=== PATIENT | female | born 1970 | race Caucasian/White ===

== ENCOUNTER 2016-07-11 10:55 | Emergency (ER) | payer OTHER ==
--- OUTSIDE RECORDS SUMMARY | 2016-07-11 12:31 | XMS REPORT | Continuity of Care Document ---
:1970 Author Organization [facility] ([facility]) Address [address] [place] [address] Phone [phone] Care Team Providers Name Role Phone Unavailable Primary Care Provider Unavailable Source Comments This disclosure is being made pursuant to the Care Everywhere program, applicable federal and state laws, and may not contain all informaitonavailable regarding this patient.[facility] ([facility]) Active Allergies and Adverse Reactions Not on File Current Medications Not on file Active Problems Not on file Social History Tobacco Use Types Packs/Day Years Used Date Never Assessed Plan of Care Health Maintenance Due Date Last Done Comments Hepatitis B Vaccine (1 of 3 - Primary Series) 1970 Tdap Vaccine 02/19/1983 Lipid Disorder Screening 02/19/1990 MMR Vaccine 02/19/1990 Td Vaccine 02/19/1990 Cervical Cancer Screening 02/19/2002 04/25/1997 Mammogram 2012 Influenza Vaccine: Seasonal (#1) 11/13/2015 Results from Last 3 Months Not on file
[2016-07-11] MEDS ORDERED: KETOROLAC TROMETHAMINE 30 MG/ML VIAL IV ONE (12:33)
[2016-07-11] MEDS ORDERED: ONDANSETRON HCL/PF 2 MG/ML VIAL IV ONE (12:33)
[2016-07-11] MEDS ORDERED: NORMAL SALINE 1,000 ML IV ONE (12:33)
[2016-07-11] MEDS ORDERED: ONDANSETRON HCL/PF 2 MG/ML VIAL ONE (12:54)
[2016-07-11] MEDS ORDERED: KETOROLAC TROMETHAMINE 30 MG/ML VIAL ONE (12:54)
[2016-07-11 12:55] LABS: Hematocrit 43.8 % (37.0-47.0); Hemoglobin 14.5 gm/dL (12.5-16.0); Mean Cell Volume 88.1 fl (78-100); Mean Corpuscular Hemoglobin 29.2 pg (27-31); Mean Corpuscular Hgb Conc 33.1 g/dl (32-36); Mean Platelet Volume 8.6 fl (6.0-9.5); Neutrophil # 9.1 K/mm3 (1.3-6.0); Neutrophil % 87.5 % (42-75.0); Platelet Count 235 K/mm3 (150-450); Red Blood Count 4.97 M/mm3 (4.2-5.4); Red Cell Distribution Width 13.9 % (11.5-14.0); Urine Bilirubin Negative (NEGATIVE); Urine Blood 25 /ul (NEGATIVE); Urine Ketone Negative (NEGATIVE); Urine Nitrite Negative (NEGATIVE); Urine Protein Negative (NEGATIVE); Urine Urobilinogen Normal (NORMAL); White Blood Count 10.4 K/mm3 (4.0-10.5)
--- NOTE | 2016-07-11 12:55 | ERNOTE ---
Medical Problem HPI - Narrative Date of Service: 07/11/16 - General Chief Complaint: Nausea/Vomiting Time Seen by Provider: 07/11/16 12:00 Source: patient Exam Limitations: no limitations - Immun/Allergies/Home Medications Immunizations: IMMUNIZATION HX Immunizations Up to Date Yes History of Influenza Vaccine No Hx Pneumococcal Vaccination No Allergies/Adverse Reactions: Allergies No Known Allergies Allergy (Verified 07/11/16 11:12) Home Medications: HOME MEDICATIONS Ondansetron [Zofran Odt] 4 mg PO Q6H PRN #20 tab 07/11/16 [Last Taken Unknown] - History of Present History Narrative: Pt. comes in with c/o nausea, diarrhea, and vomiting for two days. Pt. denies any SOB, CP, fever, or constipation. Pt. states that the symptoms started yesterday and continued throughout the night to this morning. the pt. states that last diarrhea was early this morning and last vomit was 2 hours ago. Pt. does state taht her abdomen is diffusely painful when she vomits but it is lessened when she is resting. Pt. denies any prehospital treatment. Review of Systems - Review of Systems Constitutional: Present: no symptoms reported. Absent: recent illness, fever, chills, weakness, malaise, weight loss EYE: Present: no symptoms reported ENT: Present: no symptoms reported Respiratory: Present: no symptoms reported. Absent: shortness of breath, cough , wheezing Cardiology: Present: no symptoms reported. Absent: chest pain, palpitations, edema Gastrointestinal/Abdominal: Present: nausea, vomiting, diarrhea, abdominal pain , eating less, drinking less Genitourinary: Present: no symptoms reported Musculoskeletal: Present: no symptoms reported. Absent: back pain, joint pain Skin: Present: no symptoms reported. Absent: rash, change in color Neurological: Present: no symptoms reported. Absent: headache, dizziness/light- headedness, numbness, tingling All Other Systems: All systems neg except as marked - Patient's Past Medical History Patient History - Medical: No pertinent hx Patient History - Cardiac/Respiratory: No pertinent hx Patient History - Cancer: No Hx of Cancer Patient History - Surgical Procedures: Cholecystectomy, , Tubal Ligation Patient History - Other: None - Social History Living Situations: home Abuse History: No History of abuse Psych History: No pertinent hx Alcohol Use: none Drug Use: none - Immunizations Immunizations Up to Date: Yes Hx Pneumococcal Vaccination: No History of Influenza Vaccine: No Physical Exam - Physical Exam General Appearance: Present: wd/wn, alert, no apparent distress Eye Exam: Normal inspection: bilateral, PERRL: bilateral, EOMI: bilateral Ears, Nose, Throat: Present: normal ENT inspection, normal pharynx Neck: Present: normal inspection, nontender. Absent: lymphadenopathy (R), lymphadenopathy (L) Respiratory: Present: no respiratory distress, normal breath sounds, no accessory muscle use, chest nontender, lungs clear. Absent: crackles, rales, rhonchi, wheezing Cardiovascular/Chest: Present: regular rate, rhythm, no murmur, normal peripheral pulses Gastrointestinal/Abdominal: Present: normal bowel sounds, nondistended, soft, no organomegaly, tenderness - diffuse with deep palpation mild ED Progress - Date and Time Seen: Date and Time: 07/11/16 14:37 Pt. able to tolerate fluids at this time. - Results and Orders Patient's Lab Results:: I have reviewed the patient's lab results. Results and Orders: hematuria - Vital Signs Patient's Vital Signs:: I have reviewed the patient's vital signs. Vital Signs: Vital Signs 07/11/16 11:07 Temperature 37.5 C Pulse Rate 92 Respiratory 14 Rate Blood Pressure 129/50 O2 Sat by Pulse 96 Oximetry - CT/Ultrasound CT/Ultrasound Narrative: CT abd without any renal stones. - Progress/Reassessment Chief Complaint: Nausea/Vomiting Progress:: Improved Departure - Departure Clinical Impression: Gastroenteritis and colitis, viral Disposition: Home self-care Condition: Good Instructions: Viral Gastroenteritis, Adult, Daii-[id number]-Lrag, Form - Excuse from Work, School, or Physical Activity Additional Instructions: please follow up with primary provider in 2-3 days if no improvement. No working until free of diarrhea for 24 hours. Referrals: Mel Herring FNP [Primary Care Provider] - Prescriptions: Ondansetron [Zofran Odt] 4 mg PO Q6H PRN #20 tab PRN Reason: Nausea
[2016-07-11 13:07] LABS: Urine Appearance Slightly Cloudy; Urine Bacteria 2+; Urine Color Yellow; Urine RBC 0-5 /hpf (0-5); Urine WBC TRACE /hpf (0-5)
[2016-07-11 13:14] LABS: Albumin * 3.4 gm/dl (3.4-5.0); Anion Gap 14.6 mmol/L (6.8-13.8); Bilirubin, Total 0.8 mg/dL (0.0-1.1); Calcium * 8.8 mg/dL (7.9-10.9); Carbon Dioxide 26.2 mmol/L (24-32.6); Potassium 3.8 mmol/L (3.4-4.6); Total Protein 7.7 gm/dL (6.2-8.2)
[2016-07-11 16:25] VITALS: BP 142/55
== END 2016-07-11 15:35 | disposition home or self-care (01) ==
LOC: ER 10:55
DX: A08.4 Viral intestinal infection, unspecified (principal); K52.9 Noninfective gastroenteritis and colitis, unspecified

== ENCOUNTER 2016-12-26 08:43 | Day surgery (SDC) | payer OTHER ==
[~2016-12-26 08:43] MED LIST: RINGER'S SOLUTION,LACTATED 1,000 ML IV PRN; ceFAZolin SODIUM 3 GM in DEXTROSE 5 % IN WATER 100 ML IV PRN
[2016-12-26 09:10] LABS: Hematocrit 41.3 % (37.0-47.0); Hemoglobin 13.7 gm/dL (12.5-16.0); Mean Cell Volume 86.6 fl (78-100); Mean Corpuscular Hemoglobin 28.7 pg (27-31); Mean Corpuscular Hgb Conc 33.2 g/dl (32-36); Mean Platelet Volume 9.1 fl (6.0-9.5); Neutrophil # 3.9 K/mm3 (1.3-6.0); Neutrophil % 58.6 % (42-75.0); Platelet Count 272 K/mm3 (150-450); Red Blood Count 4.77 M/mm3 (4.2-5.4); Red Cell Distribution Width 13.2 % (11.5-14.0); White Blood Count 6.6 K/mm3 (4.0-10.5)
[2016-12-26 09:25] LABS: Albumin * 3.5 gm/dl (3.4-5.0); Anion Gap 11.9 mmol/L (6.8-13.8); BUN/Creatinine Ratio 14.9 (9.0-21.6); Bilirubin, Total 0.5 mg/dL (0.0-1.1); Ca. Corrected For Albumin 8.9 mg/dL (8.4-10.2); Calcium * 8.8 mg/dL (7.9-10.9); Potassium 3.9 mmol/L (3.4-4.6); Total Protein 7.6 gm/dL (6.2-8.2)
[2016-12-26] MEDS ORDERED: BUPIVACAINE HCL 50 ML VIAL IJ ONE ×2 (10:05)
[2016-12-26] MEDS ORDERED: RINGER'S SOLUTION,LACTATED 1,000 ML IV ONE ×2 (11:50→13:50)
[2016-12-26] MEDS ORDERED: oxyCODONE HCL/ACETAMINOPHEN 1 TAB TABLET PO ONE ×2 (14:11→16:00)
[2016-12-26] MEDS ORDERED: RINGER'S SOLUTION,LACTATED 1,000 ML IV PRN (14:11)
[2016-12-26] MEDS ORDERED: IBUPROFEN 800 MG TABLET PO ONE ×2 (14:11→16:00)
--- NOTE | 2016-12-26 14:21 | OR ---
Operative Report - Dictated Report Narrative: DATE OF PROCEDURE: 12/26/2016 PROCEDURE: 1. Total laparoscopic hysterectomy, bilateral salpingectomy 2. Lysis of adhesion (60 min) 3. Diagnostic cystoscopy. ANESTHESIA: General, endotracheal intubation. PREOPERATIVE DIAGNOSES: 1. Menorrhagia, failed hormonal therapy. 2. Severe dysmenorrhea 3. Chronic hydrosalpinx of the left fallopian tube 4. Smoker 5. Prior C-sections x 3 (both lower vertical and transverse incisions) with bilateral tubal ligation 6. Open cholecystectomy (upper vertical incision) 7. Morbid obesity BMI 47 (weight 123 kg) POSTOPERATIVE DIAGNOSES: 1. Menorrhagia, failed hormonal therapy. 2. Severe dysmenorrhea 3. Chronic hydrosalpinx of the left fallopian tube 4. Smoker 5. Prior C-sections x 3 (both lower vertical and transverse incisions) with bilateral tubal ligation 6. Open cholecystectomy (upper vertical incision) 7. Morbid obesity BMI 47 (weight 123 kg) SURGEON: Genaro Velazquez M.D. DIRECTOR OF CLOUD SERVICES: Lang Kay FINDINGS: 1. Uterus and both ovaries were normal. 2. There were evidence of bilateral tubal ligation, left hydrosalpinx and adhesions of left adnexa to the pelvic side wall/sigmoid colon. 3. There was upper abdominal adhesions with omentum blocking the view to the liver and the stomach. 4. On cystoscopy, the bladder appeared intact and bilateral ureteral jets were seen. SPECIMENS: Uterus, cervix, and both tubes (removed in one piece) DRAINS: None. URINE OUTPUT: 200 ml BLOOD LOSS: 50 ml INTRAOPARATIVE IV FLUIDS: 2000 ml COMPLICATIONS: None. DESCRIPTION OF PROCEDURE: The patient consented to the operation and was taken to the operating room. She was placed on the operating table supine. SCDs were placed on her lower extremities. General anesthesia was induced. Three grams of ancef was given by IV prior to anesthesia induction. She was repositioned in the dorsal lithotomy position. Her right arm was tucked at her side under the drape. Exam under anesthesia revealed a uterus with minimal descent and with no adnexal mass. The abdomen was prepped with Chloraprep and the vagina was prepped with Betadine. She was draped in the usual sterile fashion. A time -out procedure was conducted to confirm the correct patient for the correct procedure. After time-out, a Carr catheter was placed into the bladder. A bivalve speculum was placed into the vagina. The vagina and the cervix were prepped with Betadine one more time. The anterior cervix was grasped with a single-tooth tenaculum. The uterus was sounded to 8 cm. A large VCare uterine manipulator was inserted into the uterine cavity. The balloon was inflated with 6 cc of air. The single-tooth tenaculum was removed. [place] speculum was removed. The upper VCare cup was advanced into the vagina to hug the cervix. The lower VCare cup was advanced into the vagina to align with the upper VCare cup and to provide pneumoperitoneum for the procedure. The lower VCare cup was fastened to the uterine manipulator. The surgeon then changed gloves and attention was paid to the abdomen. A small vertical incision was made at the upper edge of the umbilicus. A Veress needle was inserted into the abdominal cavity. Intraabdominal placement was confirmed with a saline drop test and with low entry pressure of 6 mmHg. The abdomen was insufflated with CO2 gas to an intraabdominal pressure of 15 mmHg. The Veress needle was removed. A 5 mm trocar with the laparoscope was inserted through the umbilicus incision into the abdomen. The regular 5 mm trocar was not long enough, so a long 5 mm trocar was used. Intraabdominal placement was confirmed with the laparoscope. Survey of the entry site revealed no trauma to the underlying structures. The patient was then placed in Trendelenburg position. Three 5 mm trocars were placed in the lower abdomen. Both left and the right lower quadrant trocars (5 mm) were placed superior and medial to the anterior superior iliac spine to avoid vessels and nerves. A suprapubic trocar ( 5 mm) was placed in the midline. All trocars were placed under the direct visualization of the laparoscope. Survey of the abdomen and pelvis revealed the findings noted above. Attention was now turned to the left side. The left fallopian tube was elevated. Lysis of adhesions were carried out to release the left fallopian tube from the sigmoid colon and the pelvic side wall. The mesosalpinx was divided with the Thunderbeat. The division was carried to the cornual region. The uteroovarian ligament was divided with the Thunderbeat and the division was carried on the broad ligament through the round ligament towards the lower uterine segment. The course of the left ureter was not identified, but believed to be away from the surgical field. The broad ligament incision was into the anterior leaf and the posterior leaf. Anterior leaf of the broad ligament was dissected towards the bladder uterine reflection. The posterior leaf of the broad ligament was dissected towards the uterosacral ligament. Dense adhesions were encountered near the uterine vessel and in the lower uterine segment. These were dissected carefully. The left uterine vessel was isolated and divided with the Thunderbeat. The lower uterine segment was dissected to free the bladder down. The cardinal ligament complex was divided with the Thunderbeat to the level of vaginal cervical junction. Attention was now turned to the right side. The right fallopian tube was elevated. The mesosalpinx was divided with the Thunderbeat. The division was carried to the cornual region. The uteroovarian ligament was divided with the Thunderbeat and the division was carried on the broad ligament through the round ligament towards the lower uterine segment. The course of the right ureter was identified and protected. The broad ligament incision was into the anterior leaf and the posterior leaf. The anterior leaf of the broad ligament was dissected towards the bladder uterine reflection and to meet with the opposite dissection point at the midline. Again, dense adhesion was lysed carefully here. The posterior leaf of the broad ligament was dissected towards the uterosacral ligament. The right uterine vessel was isolated, and divided with the Thunderbeat. The cardinal ligament complex was divided with the Thunderbeat to the level of vaginal cervical junction. The vaginal fornix was seen well through the VCare cup. The Thunderbeat was used to make an anterior colpotomy over the VCare cup groove. Entry into the vagina was without complications. A circumferential incision was made along the vaginal cervical junction using the VCare cup groove as a guide. Bilateral uterosacral ligament was divided. The cervix was completely divided from the vagina. The surgeon moved to the vaginal area to retrieve the specimen. The VCare uterine manipulator was removed. The cervix was grasped with a single tooth tenaculum. The uterus, cervix and both tubes were removed through the vagina in one piece. The vagina was packed with 2 moist laps to keep the pneumoperitoneum. The surgeon then changed gloves and attention was paid back to the abdomen. The pelvis was thoroughly irrigated with saline. The vaginal opening was closed transversely with 0 Vicryl Endoknot suture in an interrupted fashion using intracorporeal suturing technique and extracorporeal knot tying. The uterosacral ligament was sutured to the vaginal cuff corner for cuff support. The pelvis was irrigated with saline. Extra fluid was suctioned out from the abdomen and pelvis. There was hemostasis in all vessel pedicles. The patient was taken out of Trendelenburg. Three lower abdominal trocars were removed. The abdomen was deflated. The trocar at the umbilicus was removed with the laparoscope. The skin incision was closed with 4-0 Monocryl suture and 2 to 3 cc of 0.25% Marcaine was infiltrated around each incision for post op pain management. The incisions were covered with Steri-Strips. A diagnostic cystoscopy was performed. Vaginal packing was removed and the Carr catheter was removed. A 70-degree cystoscope was introduced through the urethra into the bladder. Exam of the bladder revealed the bladder was intact. There were urine jets coming out from the left as well as the right ureteral orifice, confirming the integrity of ureters. The cystoscope was removed. The Carr catheter was not replaced. The patient tolerated the procedure well. All counts were correct and the patient was taken to the recovery room in stable condition. Genaro Velazquez MD
[2016-12-26 17:16] VITALS: BP 164/95
== END 2016-12-26 08:44 | disposition home or self-care (01) ==
LOC: AMB 08:43
PROVIDERS: ATTEND Obstetrics & Gynecology
PROC: 0UTC4ZZ Resection of Cervix, Percutaneous Endoscopic Approach (ICD-10-PCS; 2016-12-26)
PROC: 0UT74ZZ Resection of Bilateral Fallopian Tubes, Percutaneous Endoscopic Approach (ICD-10-PCS; 2016-12-26)
PROC: 0UT94ZZ Resection of Uterus, Percutaneous Endoscopic Approach (ICD-10-PCS; principal; 2016-12-26 10:45)
DX: N72 Inflammatory disease of cervix uteri (principal); N92.0 Excessive and frequent menstruation with regular cycle; N94.6 Dysmenorrhea, unspecified; N70.11 Chronic salpingitis; I10 Essential (primary) hypertension; F41.9 Anxiety disorder, unspecified; F32.9 Major depressive disorder, single episode, unspecified; F17.200 Nicotine dependence, unspecified, uncomplicated; E66.01 Morbid (severe) obesity due to excess calories; Z68.42 Body mass index [BMI] 45.0-49.9, adult

== ENCOUNTER 2016-12-28 20:22 | Emergency (ER) | payer OTHER ==
[2016-12-28 21:20] LABS: Hematocrit 37.5 % (37.0-47.0); Hemoglobin 12.6 gm/dL (12.5-16.0); Mean Cell Volume 85.8 fl (78-100); Mean Corpuscular Hemoglobin 28.8 pg (27-31); Mean Corpuscular Hgb Conc 33.6 g/dl (32-36); Mean Platelet Volume 9.3 fl (6.0-9.5); Neutrophil # 5.8 K/mm3 (1.3-6.0); Neutrophil % 67.4 % (42-75.0); Platelet Count 259 K/mm3 (150-450); Red Blood Count 4.37 M/mm3 (4.2-5.4); Red Cell Distribution Width 13.1 % (11.5-14.0); White Blood Count 8.6 K/mm3 (4.0-10.5)
--- NOTE | 2016-12-28 21:31 | ERNOTE ---
Medical Problem HPI - Narrative Date of Service: 12/28/16 - General Chief Complaint: Nausea/Vomiting Time Seen by Provider: 12/28/16 20:54 - Immun/Allergies/Home Medications Immunizations: IMMUNIZATION HX Immunizations Up to Date Yes History of Influenza Vaccine No Hx Pneumococcal Vaccination No Allergies/Adverse Reactions: Allergies No Known Allergies Allergy (Verified 12/26/16 08:53) Home Medications: HOME MEDICATIONS Escitalopram Oxalate [Lexapro] 20 mg PO DAILY 10/14/16 [Last Taken Unknown] Hydrochlorothiazide [Hydrodiuril] 25 mg PO DAILY 10/14/16 [Last Taken Unknown] clonazePAM [Klonopin] 2 mg PO HS 10/14/16 [Last Taken Unknown] HYDROcodone/ACETAMINOPHEN [Hydrocodon-Acetaminoph 7.5-325] 1 each PO Q6H PRN # 15 tablet 12/26/16 [Last Taken Unknown] Ibuprofen [Motrin] 800 mg PO Q8H PRN #30 tablet 12/26/16 [Last Taken Unknown] Polyethylene Glycol 3350 [Miralax] 17 gm PO DAILY #2 bottle 12/28/16 [Last Taken Unknown] - History of Present History Narrative: patient states she had a laparoscopic hysterectomy on 12/26/2016. Patient states that yesterday she felt okay. She states today that she took a laxative because she hasn't had a BM and now she complains of nausea. Patient states that the laxative allowed her to have a small liquid bowel movement. Patient denies any other pain abdominal pain incision site pain drainage or odor Date (Duration): 12/28/16 Timing: intermittent Severity: mild Modifying Factors - (Worsens): Present: eating Review of Systems - Review of Systems Constitutional: Present: See HPI EYE: Present: no symptoms reported ENT: Present: no symptoms reported Respiratory: Present: no symptoms reported Cardiology: Present: no symptoms reported Gastrointestinal/Abdominal: Present: See HPI, nausea, diarrhea Genitourinary: Present: no symptoms reported Musculoskeletal: Present: no symptoms reported Skin: Present: no symptoms reported Neurological: Present: no symptoms reported Endocrine: Present: no symptoms reported Hematologic/Lymphatic: Present: no symptoms reported Psych: Present: no symptoms reported All Other Systems: All systems neg except as marked - Patient's Past Medical History Patient History - Medical: Anxiety, Depression, Other Patient History - Cardiac/Respiratory: Hypertension Patient History - Cancer: No Hx of Cancer Patient History - Surgical Procedures: Cholecystectomy, , D & C, Hysterectomy, Tubal Ligation Patient History - Other: None - Family History Father Family History - Medical: , No pertinent hx Family History - Cardiac/Respiratory: No pertinent hx Family History - Cancer: Colon Mother Family History - Medical: , Diabetes Type 2, Other Family History - Cardiac/Respiratory: Myocardial Infarction, Other Family History - Cancer: No pertinent family hx - Social History Living Situations: spouse Abuse History: No History of abuse Psych History: Hx of Anxiety, Hx of Depression, Current tx/ever been on anti- depressants or anti-anxiety meds Smoking Status: Current every day smoker Have you smoked in the past 12 months: Yes Do you dip or chew tobacco: No Alcohol Use: none Drug Use: other - Immunizations Immunizations Up to Date: Yes Hx Pneumococcal Vaccination: No History of Influenza Vaccine: No Physical Exam - Physical Exam Narrative: Abd soft and nontender, incision sites are CDI and no s/s of infection observed. Patient has hypoactive bowel sounds. General Appearance: Present: wd/wn, alert, no apparent distress Head Exam: Present: normal inspection, no evidence of injury Eye Exam: Normal inspection: bilateral, PERRL: bilateral, EOMI: bilateral Ears, Nose, Throat: Present: normal ENT inspection Neck: Present: normal inspection, nontender Respiratory: Present: no respiratory distress, normal breath sounds, no accessory muscle use, chest nontender, lungs clear Cardiovascular/Chest: Present: regular rate, rhythm, no murmur, normal peripheral pulses Peripheral Pulses: N=norm/S=strong/W=weak/B=bound/A=absent: Dorsalis-pedis (R): Normal, Dorsalis-pedis (L): Normal Gastrointestinal/Abdominal: Present: normal bowel sounds, nontender, nondistended, soft, no organomegaly Rectal Exam: Present: nontender, normal rectal tone Back Exam: Present: normal inspection, normal range of motion, no CVA tenderness , no vertebral tenderness Extremity Exam: Present: normal inspection, non-tender, normal range of motion, no edema. 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 Results and Orders: WNL, Potassium replaced - Vital Signs Patient's Vital Signs:: I have reviewed the patient's vital signs. Vital Signs: Vital Signs 12/28/16 12/28/16 20:35 21:12 Temperature 37.1 C Pulse Rate 77 82 Respiratory 16 16 Rate Blood Pressure 177/82 O2 Sat by Pulse 97 98 Oximetry - X-Ray X-Ray #1 X-Ray: abdomen Interpretation: Reviewed by me X-ray Comments: patient has moderate stool retention. - Progress/Reassessment Chief Complaint: Nausea/Vomiting Progress:: Improved Plan - Plan Plan: Patient is going to take any oral laxative and see if that assists with her nausea. Patient states that she did not eat much today but she did have plenty of water. Patient encouraged to start a soft diet and to return if she does not have a bowel movement. Departure - Departure Clinical Impression: Constipation due to pain medication Disposition: Home Follow Up Needed Condition: Stable Instructions: Constipation, Adult, [id number] Additional Instructions: Continue any previous home medications as directed. Follow-up with her primary care provider neurosurgeon in the next 2-3 days. Return to the emergency room if he do not have a bowel movement within the next 2 days. Return to the emergency room if he has anymore nausea vomiting or increased pain. Referrals: Mel Herring FNP [Primary Care Provider] - Prescriptions: Polyethylene Glycol 3350 [Miralax] 17 gm PO DAILY #2 bottle
[2016-12-28 21:33] LABS: Albumin * 3.2 gm/dl (3.4-5.0); BUN/Creatinine Ratio 11.3 (9.0-21.6); Bilirubin, Total 0.3 mg/dL (0.0-1.1); Ca. Corrected For Albumin 8.9 mg/dL (8.4-10.2); Calcium * 8.6 mg/dL (7.9-10.9); Carbon Dioxide 27.2 mmol/L (24-32.6); Potassium 3.2 mmol/L (3.4-4.6); Total Protein 7.2 gm/dL (6.2-8.2)
[2016-12-28] MEDS ORDERED: POTASSIUM CHLORIDE 20 MEQ TABLET.SA PO ONE (21:35)
[2016-12-28] MEDS ORDERED: POTASSIUM CHLORIDE 20 MEQ TABLET.SA ONE (22:00)
[2016-12-28 22:08] VITALS: BP 156/78
== END 2016-12-28 22:06 | disposition home or self-care (01) ==
LOC: ER 20:22
DX: K59.03 Drug induced constipation (principal); I10 Essential (primary) hypertension; F41.8 Other specified anxiety disorders; Z90.710 Acquired absence of both cervix and uterus; F17.200 Nicotine dependence, unspecified, uncomplicated

== ENCOUNTER 2017-03-17 15:43 | Emergency (ER) | payer OTHER ==
[2017-03-17 15:53] VITALS: BP 158/84
[2017-03-17] MEDS ORDERED: ONDANSETRON 4 MG TAB.RAPDIS PO ONE (16:20)
[2017-03-17] MEDS ORDERED: ONDANSETRON 4 MG TAB.RAPDIS ONE (16:21)
--- NOTE | 2017-03-17 16:25 | ERNOTE ---
Medical Problem HPI - Narrative Date of Service: 03/17/17 - General Chief Complaint: Nausea/Vomiting Time Seen by Provider: 03/17/17 16:10 Source: patient Exam Limitations: no limitations - Immun/Allergies/Home Medications Immunizations: IMMUNIZATION HX Immunizations Up to Date Yes History of Influenza Vaccine No Hx Pneumococcal Vaccination No Allergies/Adverse Reactions: Allergies No Known Allergies Allergy (Verified 03/17/17 15:53) Home Medications: HOME MEDICATIONS Escitalopram Oxalate [Lexapro] 20 mg PO DAILY 10/14/16 [Last Taken Unknown] Hydrochlorothiazide [Hydrodiuril] 25 mg PO DAILY 10/14/16 [Last Taken Unknown] clonazePAM [Klonopin] 2 mg PO HS 10/14/16 [Last Taken Unknown] Ondansetron [Zofran Odt] 4 mg PO Q6H PRN #20 tab 03/17/17 [Last Taken Unknown] - History of Present History Narrative: Pt. comes in with c/o 12 hour history of NVD. Pt. states that she was exposed at work by a coworker two days ago. Pt. denies any SOB, CP, fever, dizziness, lightheadedness, alleviating, or aggravating factors. Pt. denies any prehospital treatment. Timing: intermittent Severity: mild Modifying Factors - (Improves): Present: other - denies Modifying Factors - (Worsens): Present: eating Review of Systems - Review of Systems Constitutional: Present: no symptoms reported. Absent: recent illness, fever, chills, weakness, fatigue, malaise EYE: Present: no symptoms reported ENT: Present: no symptoms reported Respiratory: Present: no symptoms reported. Absent: shortness of breath, cough , wheezing Cardiology: Present: no symptoms reported. Absent: chest pain, palpitations, edema Gastrointestinal/Abdominal: Present: nausea, vomiting, diarrhea, eating less, drinking less. Absent: abdominal pain Genitourinary: Present: no symptoms reported. Absent: frequency, decreased urinary output Musculoskeletal: Present: no symptoms reported. Absent: back pain, joint pain Skin: Present: no symptoms reported. Absent: rash, change in hair/nails Neurological: Present: no symptoms reported. Absent: headache, dizziness/light- headedness, numbness, tingling All Other Systems: All systems neg except as marked - Patient's Past Medical History Patient History - Medical: Anxiety, Depression, Other Patient History - Cardiac/Respiratory: Hypertension Patient History - Cancer: No Hx of Cancer Patient History - Surgical Procedures: Cholecystectomy, , D & C, Hysterectomy, Tubal Ligation Patient History - Other: None - Family History Father Family History - Medical: , No pertinent hx Family History - Cardiac/Respiratory: No pertinent hx Family History - Cancer: Colon Mother Family History - Medical: , Diabetes Type 2, Other Family History - Cardiac/Respiratory: Myocardial Infarction, Other Family History - Cancer: No pertinent family hx - Social History Living Situations: home Abuse History: No History of abuse Psych History: Hx of Anxiety, Hx of Depression, Current tx/ever been on anti- depressants or anti-anxiety meds Smoking Status: Current every day smoker Alcohol Use: none Drug Use: none - Immunizations Immunizations Up to Date: Yes Hx Pneumococcal Vaccination: No History of Influenza Vaccine: No Physical Exam - Physical Exam General Appearance: Present: wd/wn, alert, no apparent distress Head Exam: Present: normal inspection, no evidence of injury Eye Exam: Normal inspection: bilateral Ears, Nose, Throat: Present: normal ENT inspection, normal pharynx Neck: Present: normal inspection, nontender, supple, full range of motion. Absent: lymphadenopathy (R), lymphadenopathy (L) Respiratory: Present: no respiratory distress, normal breath sounds, no accessory muscle use, chest nontender, lungs clear Cardiovascular/Chest: Present: regular rate, rhythm, no murmur, normal peripheral pulses Gastrointestinal/Abdominal: Present: normal bowel sounds, nontender, nondistended, soft, no organomegaly Back Exam: Present: normal inspection, normal range of motion, no CVA tenderness , no vertebral tenderness Extremity Exam: Present: normal inspection, non-tender, normal range of motion, no edema Neurological Exam: Present: alert, oriented, normal mood/affect, no motor/ sensory deficits Skin Exam: Present: warm/dry, pallor ED Progress - Vital Signs Patient's Vital Signs:: I have reviewed the patient's vital signs. Vital Signs: Vital Signs 03/17/17 15:44 Temperature 36.3 C L Pulse Rate 85 Respiratory 12 Rate Blood Pressure 158/84 O2 Sat by Pulse 99 Oximetry - Progress/Reassessment Chief Complaint: Nausea/Vomiting Progress:: Improved Departure Clinical Impression: Gastroenteritis and colitis, viral - Departure Disposition: Home self-care Condition: Good Instructions: Viral Gastroenteritis, Adult, [id number] Additional Instructions: Please follow up with primary provider in 2-3 days. Referrals: Mel Herring FNP [Primary Care Provider] - Prescriptions: Ondansetron [Zofran Odt] 4 mg PO Q6H PRN #20 tab PRN Reason: Nausea
== END 2017-03-17 17:20 | disposition home or self-care (01) ==
LOC: ER 15:43
DX: A08.4 Viral intestinal infection, unspecified (principal); F32.9 Major depressive disorder, single episode, unspecified; I10 Essential (primary) hypertension; F17.200 Nicotine dependence, unspecified, uncomplicated

== ENCOUNTER 2017-05-19 14:22 | Emergency (ER) | payer SELFPAY ==
[2017-05-19 14:44] VITALS: BP 160/84
[2017-05-19] MEDS ORDERED: IBUPROFEN 400 MG TABLET PO ONE (15:34)
[2017-05-19] MEDS ORDERED: ACETAMINOPHEN 500 MG TABLET PO ONE (15:34)
[2017-05-19] MEDS ORDERED: IBUPROFEN 400 MG TABLET ONE (15:37)
--- NOTE | 2017-05-19 15:42 | ERNOTE ---
Medical Problem HPI - Narrative Date of Service: 05/19/17 - General Chief Complaint: Nausea/Vomiting Time Seen by Provider: 05/19/17 15:19 Source: patient Exam Limitations: no limitations - Immun/Allergies/Home Medications Immunizations: IMMUNIZATION HX Immunizations Up to Date Yes History of Influenza Vaccine Yes Hx Pneumococcal Vaccination No Allergies/Adverse Reactions: Allergies No Known Allergies Allergy (Verified 03/19/17 07:43) Home Medications: HOME MEDICATIONS Escitalopram Oxalate [Lexapro] 20 mg PO DAILY 10/14/16 [Last Taken Unknown] clonazePAM [Klonopin] 2 mg PO HS 10/14/16 [Last Taken Unknown] Ondansetron [Zofran Odt] 4 mg PO Q6H PRN #20 tab 03/17/17 [Last Taken Unknown] Promethazine HCl [Phenergan (Promethazine)] 25 mg PO Q8H PRN #12 tab 03/19/17 [ Last Taken Unknown] Oseltamivir Phosphate [Tamiflu] 75 mg PO BID #10 cap 05/19/17 [Last Taken Unknown] - History of Present History Narrative: Patient presents with just under 2 days of cough, fever, body aches, ST. 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 Feels feverish. No CP or SOB, but feels mildly SOB with the coughing fits she gets. NO rash. No vomiting or diarrhea, no abdominal pain. Nausea, no vomiting. Timing: constant Severity: severe Modifying Factors - (Improves): Present: other - nothing Modifying Factors - (Worsens): Present: other - nothing Review of Systems - Review of Systems Constitutional: Present: fever EYE: Absent: eye discharge ENT: Present: nose congestion, sore throat. Absent: throat swelling Respiratory: Present: cough Cardiology: Absent: chest pain Gastrointestinal/Abdominal: Present: nausea. Absent: vomiting, abdominal pain Genitourinary: Absent: dysuria - Patient's Past Medical History Patient History - Medical: Anxiety, Depression, Other Patient History - Cardiac/Respiratory: Hypertension Patient History - Cancer: No Hx of Cancer Patient History - Surgical Procedures: Cholecystectomy, , D & C, Hysterectomy, Tubal Ligation Patient History - Other: None - Family History Father Family History - Medical: , No pertinent hx Family History - Cardiac/Respiratory: No pertinent hx Family History - Cancer: Colon Mother Family History - Medical: , Diabetes Type 2, Other Family History - Cardiac/Respiratory: Myocardial Infarction, Other Family History - Cancer: No pertinent family hx - Social History Living Situations: home Abuse History: No History of abuse Psych History: Hx of Anxiety, Hx of Depression, Current tx/ever been on anti- depressants or anti-anxiety meds Smoking Status: Current every day smoker Have you smoked in the past 12 months: Yes Do you dip or chew tobacco: No Alcohol Use: sober Drug Use: none - Immunizations Immunizations Up to Date: Yes Hx Pneumococcal Vaccination: No History of Influenza Vaccine: Yes Physical Exam - Physical Exam General Appearance: Present: alert, no apparent distress, other - non-toxic, no distress, speaking in full sentences, occasional cough. well hydrated. Head Exam: Present: normal inspection, no evidence of injury Eye Exam: Normal inspection: bilateral, PERRL: bilateral Ears, Nose, Throat: Present: nasal congestion, other - Mild posterior oropharyngeal erythema. No [employer], RPA or epiglottitis.. Absent: pharyngeal swelling, tonsillar exudate, tonsillar swelling, dry mucous membranes Neck: Present: normal inspection Respiratory: Present: no respiratory distress, normal breath sounds, no accessory muscle use, lungs clear, other - occasional cough Cardiovascular/Chest: Present: regular rate, rhythm, normal peripheral pulses Gastrointestinal/Abdominal: Present: normal bowel sounds, nontender, soft Back Exam: Present: normal range of motion Extremity Exam: Present: normal range of motion Neurological Exam: Present: alert, no motor/sensory deficits Skin Exam: Present: normal color, warm/dry. Absent: skin rash ED Progress - Results and Orders Patient's Lab Results:: I have reviewed the patient's lab results. - Vital Signs Patient's Vital Signs:: I have reviewed the patient's vital signs. Vital Signs: Vital Signs 05/19/17 14:35 Temperature 38.7 C H Pulse Rate 112 H Respiratory 20 Rate Blood Pressure 160/84 O2 Sat by Pulse 97 Oximetry - Progress/Reassessment Chief Complaint: Nausea/Vomiting Progress Note-Subjective: 05/19/17 15:39 Apparent uncomplicated Influenza A within treatment window for Tamiflu. Stable for outpatient management at this time. I disucssed warning signs and reasons to return as well as the need for close f/u. Departure Clinical Impression: Influenza A - Departure Disposition: Home self-care Condition: Stable Instructions: Influenza, Adult, [id number] Additional Instructions: Rest. Fluids. Tylenol, Ibuprofen. Tamiflu as directed. Follow-up with your doctor in 3 days for a re-check. Return for trouble breathing or if your condition worsens or changes in any way. Referrals: Mel Herring FNP [Primary Care Provider] - Prescriptions: Oseltamivir Phosphate [Tamiflu] 75 mg PO BID #10 cap
== END 2017-05-19 15:43 | disposition home or self-care (01) ==
LOC: ER 14:22
DX: J10.1 Influenza due to other identified influenza virus with other respiratory manifestations; F41.9 Anxiety disorder, unspecified; F17.200 Nicotine dependence, unspecified, uncomplicated

== ENCOUNTER 2019-04-10 16:27 | Observation (INO) ==
[2019-04-10] MEDS ORDERED: ASPIRIN 81 MG TAB.CHEW PO ONE (16:32)
[2019-04-10 16:45] LABS: Hematocrit 40.1 % (37.0-47.0); Hemoglobin 13.6 gm/dL (12.5-16.0); Mean Cell Volume 88.7 fl (78-100); Mean Corpuscular Hemoglobin 30.1 pg (27-31); Mean Corpuscular Hgb Conc 33.9 g/dl (32-36); Mean Platelet Volume 8.9 fl (8-12.5); Neutrophil # 4.8 K/mm3 (1.3-6.0); Neutrophil % 64.7 % (42-75.0); Platelet Count 210 K/mm3 (150-450); Red Blood Count 4.52 M/mm3 (4.2-5.4); Red Cell Distribution Width 13.2 % (11.5-14.0); White Blood Count 7.5 K/mm3 (4.0-10.5)
[2019-04-10 16:56] LABS: Prothrombin Time (Patient) 11.4 Seconds (9.1-10.7)
[2019-04-10 17:01] LABS: Albumin * 3.3 gm/dl (3.4-5.0); Anion Gap 13.4 mmol/L (6.8-13.8); BUN/Creatinine Ratio 16.4 (9.0-21.6); Bilirubin, Total 0.6 mg/dL (0.0-1.1); Ca. Corrected For Albumin 8.7 mg/dL (8.4-10.2); Calcium * 8.5 mg/dL (7.9-10.9); Carbon Dioxide 27.7 mmol/L (24-32.6); INR 1.16 INR (0.92-1.08); Partial Thrombolplastin Time 26.2 Seconds (24-32); Potassium 3.1 mmol/L (3.4-4.6); Troponin I 0.042 ng/mL (0.00-0.10)
[2019-04-10] MEDS ORDERED: KETOROLAC TROMETHAMINE 60 MG/2 ML VIAL IM ONE (17:04)
--- NOTE | 2019-04-10 17:13 | ERNOTE ---
Chest Pain/Cardiac HPI Date of Service: 04/10/19 Chief Complaint: Chest Pain Time Seen by Provider: 04/10/19 16:49 Source: patient Exam Limitations: no limitations Immunizations: IMMUNIZATION HX Immunizations Up to Date Yes History of Influenza Vaccine No Hx Pneumococcal Vaccination No Allergies/Adverse Reactions: Allergies No Known Allergies Allergy (Verified 06/12/18 16:41) Home Medications: HOME MEDICATIONS NK 04/10/19 [Last Taken Unknown] Narrative: This patient is a 49-year-old female who is here with chest pain. She said that a 5-minute episode of chest pain around 9 AM while she was getting out of bed. She then developed pain again around 2:30 PM. This occurred while she was working at [employer]. She was cooking. The pain is in the left lower chest and radiates to the left arm. The pain is sharp. The arm is numb. Nothing makes the pain any better or worse. She has no shortness of breath, diaphoresis, nausea or lightheadedness. She has had no prior work-up of her heart. She has a history of hypertension, smoking, and family history of heart disease. Her dad had a heart attack in his 40s and her mom had a heart attack at age 56. She denies history of high cholesterol or diabetes. She has not been taking her high blood pressure medicine for over a year due to insurance problems. Review of Systems - Review of Systems Constitutional: Absent: fever, chills, diaphoresis, weight loss EYE: Absent: blurred vision, double vision ENT: Absent: ear pain, nose congestion, nasal drainage, sore throat Respiratory: Absent: shortness of breath, cough Cardiology: Present: chest pain. Absent: palpitations, syncope, edema Gastrointestinal/Abdominal: Absent: nausea, vomiting, diarrhea, constipation, abdominal pain Genitourinary: Absent: frequency, pain, dysuria, hematuria Musculoskeletal: Absent: back pain, neck pain, joint pain Skin: Absent: rash Neurological: Present: numbness - She has numbness of her left arm. She says she also gets some numbness of her legs at night.. Absent: anxiety, headache, dizziness/light-headedness, weakness Endocrine: Present: other - No diabetes. Absent: unexplained weight gain, unexplained weight loss Hematologic/Lymphatic: Present: no symptoms reported - No active bleeding Psych: Present: depressed - No suicidal ideation. Absent: anxiety Medical History (Last Reviewed 04/10/19 @ 17:10 by Jc Lynn MD) Depression Hypertension Surgical History: Surgical History (Last Reviewed 04/10/19 @ 17:10 by Jc Lynn MD) Hx of section Hx of cholecystectomy Hx of hysterectomy Family History: Family History (Last Reviewed 04/10/19 @ 17:10 by Jc Lynn MD) Aunt Cancer breast Mother Heart disease Liver failure Myocardial infarction Diabetes Father Cancer Social History: (Last Reviewed 04/10/19 @ 17:10 by Jc Lynn MD) Social History: Marital status: lives independently: Yes household members: spouse current occupational status: employed Service: No Tobacco: Smoking Status: Current every day smoker Alcohol: alcohol intake: current alcohol intake frequency: holiday/special occasion Substance Use: substance use type: does not use Dietary Habits: caffeine: Yes caffeine comment: daily Physical Exam - Physical Exam General Appearance: Present: alert, no apparent distress, obese Head Exam: Present: normal inspection, no evidence of injury Eye Exam: Normal inspection: bilateral Ears, Nose, Throat: Present: normal ENT inspection, normal pharynx Neck: Present: normal inspection, nontender. Absent: lymphadenopathy (R), lymphadenopathy (L) Respiratory: Present: no respiratory distress, normal breath sounds, no accessory muscle use, lungs clear, chest tenderness - Palpation of the chest wall reproduces the pain in her chest and arm. Cardiovascular/Chest: Present: regular rate, rhythm, no murmur Gastrointestinal/Abdominal: Present: normal bowel sounds, nontender, nondistended, soft, no organomegaly Back Exam: Present: normal inspection Extremity Exam: Present: normal inspection, normal range of motion, no edema. Absent: non-tender - She has tenderness with palpation of both calves. Neurological Exam: Present: alert, oriented, normal mood/affect, no motor/sensory deficits Skin Exam: Present: normal color, warm/dry Lymphatic Exam: Present: no adenopathy Progress - Date and Time Seen: Date and Time: 04/10/19 20:12 The second troponin was up from the first. I spoke with Dr. Trevizo and the patient will be admitted for observation. The patient is agreeable. - Results and Orders Patient's Lab Results:: I have reviewed the patient's lab results. Results and Orders: Laboratory Tests 1204/10/19 04/10/19 16:40 16:40 16:40 WBC 7.5 Hgb 13.6 Hct 40.1 Plt Count 210 Immature Gran % (Auto) 0.10 Neutrophils % 64.7 Lymphocytes % 30.1 Monocytes % 3.5 Eosinophils % 1.2 Basophils % 0.4 Nucleated RBC % 0.0 PT 11.4 H INR (Anticoag Therapy) 1.16 H PTT ([place]) 26.2 D-Dimer Plasma Sodium 139 Potassium 3.1 L Chloride 101 Carbon Dioxide 27.7 Anion Gap 13.4 BUN 9 Creatinine 0.55 Est GFR (Non-Af Amer) 126 Random Glucose 120 H Calcium Adj for Albumin 8.7 Total Bilirubin 0.6 AST 12 ALT 11 L Alkaline Phosphatase 86 Troponin I 0.042 Total Protein 7.0 Albumin 3.3 L 04/10/19 16:40 WBC Hgb Hct Plt Count Immature Gran % (Auto) Neutrophils % Lymphocytes % Monocytes % Eosinophils % Basophils % Nucleated RBC % PT INR (Anticoag Therapy) PTT ([place]) D-Dimer 0.53 H Plasma Sodium Potassium Chloride Carbon Dioxide Anion Gap BUN Creatinine Est GFR (Non-Af Amer) Random Glucose Calcium Adj for Albumin Total Bilirubin AST ALT Alkaline Phosphatase Troponin I Total Protein Albumin Laboratory Tests 04/10/19 04/10/19 04/10/19 16:40 16:40 19:32 D-Dimer 0.53 H Troponin I 0.042 0.051 - Vital Signs Patient's Vital Signs:: I have reviewed the patient's vital signs. Vital Signs: Vital Signs 04/10/19 16:30 04/10/19 16:42 Temperature 36.6 C Pulse Rate 93 98 Respiratory Rate 14 Blood Pressure 164/89 H O2 Sat by Pulse Oximetry 97 - EKG EKG #1 EKG read: Interp. by me EKG Comments: Normal sinus rhythm Rate 98 Normal axis Normal appearing ST and T waves No change from an EKG dated 10/18/2016. EKG #2 EKG read: Interp. by me EKG Comments: Normal sinus rhythm Rate 71 Normal axis No acute appearing ST or T wave changes No change from earlier today. - X-Ray X-Ray #1 X-Ray: chest Interpretation: Interp. by wa - nl - CT/Ultrasound CT/Ultrasound Narrative: INDICATION: CP, elevated d-dimer COMPARISON: April 10, 2019 TECHNIQUE: CTA Chest Individualized dose optimization technique was used for the performed procedure including automated exposure control, adjustment of the mA and/or kV according to patient size and/or the iterative reconstruction technique. Coronal and axial MIP imaging was also obtained. FINDINGS: No axillary, mediastinal or hilar lymphadenopathy is identified. No pleural or pericardial effusion identified. No pneumothorax. No identifiable consolidation, suspicious pulmonary nodule or mass identified. Heart size is normal. No evidence for pulmonary embolus identified. Thyroid is unremarkable. Chest wall is within normal limits. Upper abdominal structures demonstrates some calcified granulomas in the spleen. IMPRESSION: . No acute cardiopulmonary process. No PE Electronically signed by Lorenzo Nguyễn M.D - Progress/Reassessment Chief Complaint: Chest Pain Departure Clinical Impression: Chest wall pain, Chest pain - Departure Disposition: Still a patient Condition: Stable Referrals: Mel Herring FNP [Primary Care Provider] -
[2019-04-10] MEDS ORDERED: NORMAL SALINE 1,000 ML IV ONE (17:39)
[2019-04-10] MEDS: POTASSIUM CHLORIDE 20 MEQ TABLET.SA PO SCH (21:25)
[2019-04-10] MEDS: LISINOPRIL 10 MG TABLET PO SCH (21:25)
[2019-04-10] MEDS: KETOROLAC TROMETHAMINE 10 MG TABLET PO SCH (23:54)
[2019-04-11 06:52] LABS: Anion Gap 10.2 mmol/L (6.8-13.8); BUN/Creatinine Ratio 23.1 (9.0-21.6); Calcium * 8.2 mg/dL (7.9-10.9); Estimated Creat Clear 115.5; Potassium 4.2 mmol/L (3.4-4.6)
--- NOTE | 2019-04-11 08:43 | HPDIS ---
Chief Complaint - Chief Complaint Date of Service: 04/11/19 Chief Complaint: chest pain History of Present Illness: This is H&P/DC summary #2, as [employer] lost my first near-completed attempt. Initial document was started approximately 8 am. Patient with past medical history of hypertension presented to the ER yesterday after several hours of chest pain. She denied shortness of breath or nausea. No recent upper respiratory complaints. No current lower extremity swelling, however she does at times have swelling if she is on her feet for too long. She is previously on antihypertensive, but had lost her insurance and has not taken it in over a year. Both parents of heart attacks at a young age. She currently smokes. She does not have a PCP at this time. In the ED, EKGs were normal. Due to her risk factors including hypertension, family history, smoking, obesity, she was admitted for observation. Troponin "peaked" at 0.051. This morning, her chest pain is resolved. Tobacco cessation discussed. Also discussed obtaining a stress test. She does not remember what her previous antihypertensive medication was. She was started on 10 mg lisinopril for blood pressures in the 150s over 90s. Recommend reassessing this at her hospital follow-up visit. She was also hypokalemic, with a potassium of 3.1. She was administered 40 mEq p.o., and recheck potassium was 4.2. Medical History (Last Reviewed 04/10/19 @ 20:33 by Tanya Danielle RN) Depression Hypertension Surgical History: Surgical History (Last Reviewed 04/10/19 @ 20:33 by Tanya Danielle RN) Hx of section Hx of cholecystectomy Hx of hysterectomy Family History: Family History (Last Reviewed 04/10/19 @ 20:34 by Tanya Danielle RN) Aunt Cancer breast Mother Heart disease Liver failure Myocardial infarction Diabetes Father Cancer Social History: (Last Reviewed 04/10/19 @ 20:35 by Tanya Danielle RN) Social History: Marital status: lives independently: Yes household members: spouse current occupational status: employed Service: No Tobacco: Smoking Status: Current every day smoker Alcohol: alcohol intake: current alcohol intake frequency: holiday/special occasion Substance Use: substance use type: does not use Dietary Habits: caffeine: Yes caffeine comment: daily Review Of Systems (GEN) - Review of Systems Generalized/Overall Review: Absent: Fever Respiratory: Absent: Cough, Shortness of Breath Cardiac: Present: Chest Pain. Absent: Edema Abdominal: Absent: Nausea Genitourinary: Present: No Symptoms Reported Musculoskeletal: Present: No Symptoms Reported Neurological: Present: No Symptoms Reported Skin: Present: No Symptoms Reported Immunizations: IMMUNIZATION HX Immunizations Up to Date Yes History of Influenza Vaccine No Hx Pneumococcal Vaccination No Allergies/Adverse Reactions: Allergies Allergy/AdvReac Type Severity Reaction Status Date / Time No Known Allergies Allergy Verified 06/12/18 16:41 Home Medications: HOME MEDICATIONS Lisinopril [Zestril] 10 mg PO DAILY #30 tablet 04/11/19 [Last Taken Unknown] Exam - Exam Vital Signs: Vital Signs - Last Taken Temp 36.8 C 04/11/19 06:41 Pulse 67 04/11/19 06:41 Resp 18 04/11/19 06:41 BP 116/74 04/11/19 06:41 Pulse Ox 98 04/11/19 06:41 Constitutional: Present: Alert - wakens easily, Morbidly obese Respiratory: Present: normal breath sounds, no respiratory distress Cardiovascular/Chest: Present: regular rate, rhythm Abdomen: Present: soft, nontender, obese Extremity: Absent: lower extremity edema Neurologic: Present: normal mood/affect Diagnostic Studies: Abnormal Lab Results 04/10/19 04/10/19 04/10/19 Range/Units 16:40 16:40 16:40 PT 11.4 H (9.1-10.7) Seconds INR (Anticoag Therapy) 1.16 H (0.92-1.08) INR D-Dimer 0.53 H (0.19-0.49) ug/mL Potassium 3.1 L (3.4-4.6) mmol/L Chloride (97-106) mmol/L Est GFR (Non-Af Amer) (60-130) mL/min BUN/Creatinine Ratio (9.0-21.6) Random Glucose 120 H (70-110) mg/dL ALT 11 L (19-67) U/L Albumin 3.3 L (3.4-5.0) gm/dl 04/11/19 Range/Units 06:40 PT (9.1-10.7) Seconds INR (Anticoag Therapy) (0.92-1.08) INR D-Dimer (0.19-0.49) ug/mL Potassium (3.4-4.6) mmol/L Chloride 108 H (97-106) mmol/L Est GFR (Non-Af Amer) 134 H (60-130) mL/min BUN/Creatinine Ratio 23.1 H (9.0-21.6) Random Glucose (70-110) mg/dL ALT (19-67) U/L Albumin (3.4-5.0) gm/dl Laboratory Results WBC 7.5 K/mm3 (4.0-10.5) 04/10/19 16:40 RBC 4.52 M/mm3 (4.2-5.4) 04/10/19 16:40 Hgb 13.6 gm/dL (12.5-16.0) 04/10/19 16:40 Hct 40.1 % (37.0-47.0) 04/10/19 16:40 MCV 88.7 fl (78-100) 04/10/19 16:40 MCH 30.1 pg (27-31) 04/10/19 16:40 MCHC 33.9 g/dl (32-36) 04/10/19 16:40 RDW 13.2 % (11.5-14.0) 04/10/19 16:40 Plt Count 210 K/mm3 (150-450) 04/10/19 16:40 MPV 8.9 fl (8-12.5) 04/10/19 16:40 Immature Gran % (Auto) 0.10 % (0.001-0.429) 04/10/19 16:40 Immature Gran # (Auto) 0.01 K/mm3 (0.000-0.0310) 04/10/19 16:40 Neutrophils % 64.7 % (42-75.0) 04/10/19 16:40 Lymphocytes % 30.1 % (20-51) 04/10/19 16:40 Monocytes % 3.5 % (0.0-9) 04/10/19 16:40 Eosinophils % 1.2 % (0.0-3.0) 04/10/19 16:40 Basophils % 0.4 % (0.0-1.0) 04/10/19 16:40 Nucleated RBC % 0.0 k/mm3 (0-1) 04/10/19 16:40 Neutrophils # 4.8 K/mm3 (1.3-6.0) 04/10/19 16:40 Lymphocytes # 2.25 k/mm3 (1.5-3.5) 04/10/19 16:40 Monocytes # 0.3 k/mm3 (0.0-1.0) 04/10/19 16:40 Eosinophils # 0.1 k/mm3 (0.0-0.7) 04/10/19 16:40 Absolute Basophils 0.0 k/mm3 (0.0-0.1) 04/10/19 16:40 PT 11.4 Seconds (9.1-10.7) H 04/10/19 16:40 INR (Anticoag Therapy) 1.16 INR (0.92-1.08) H 04/10/19 16:40 PTT ([place]) 26.2 Seconds (24-32) 04/10/19 16:40 D-Dimer 0.53 ug/mL (0.19-0.49) H 04/10/19 16:40 Sodium 141 mmol/L (132-142) 04/11/19 06:40 Plasma Sodium 141 mmol/L (130-142) 04/11/19 06:40 Potassium 4.2 mmol/L (3.4-4.6) D 04/11/19 06:40 Chloride 108 mmol/L (97-106) H 04/11/19 06:40 Carbon Dioxide 27.0 mmol/L (24-32.6) 04/11/19 06:40 Anion Gap 10.2 mmol/L (6.8-13.8) 04/11/19 06:40 BUN 12 mg/dL (3-23) 04/11/19 06:40 Creatinine 0.52 mg/dL (0.4-1.4) 04/11/19 06:40 Est GFR (Non-Af Amer) 134 mL/min (60-130) H 04/11/19 06:40 BUN/Creatinine Ratio 23.1 (9.0-21.6) H 04/11/19 06:40 Random Glucose 106 mg/dL (70-110) 04/11/19 06:40 Calcium 8.2 mg/dL (7.9-10.9) 04/11/19 06:40 Calcium Adj for Albumin 8.7 mg/dL (8.4-10.2) 04/10/19 16:40 Total Bilirubin 0.6 mg/dL (0.0-1.1) 04/10/19 16:40 AST 12 U/L (0-48) 04/10/19 16:40 ALT 11 U/L (19-67) L 04/10/19 16:40 Alkaline Phosphatase 86 U/L (50-170) 04/10/19 16:40 Troponin I 0.049 ng/mL (0.00-0.10) 04/10/19 22:30 Total Protein 7.0 gm/dL (6.2-8.2) 04/10/19 16:40 Albumin 3.3 gm/dl (3.4-5.0) L 04/10/19 16:40 Assessment/Plan - Assessment/Plan (1) Chest wall pain Problem: Acute (2) Hypertension Problem: Acute (3) Hypokalemia Problem: Acute (1) Chest wall pain Problem: Resolved (2) Hypertension Problem: Chronic (3) Hypokalemia Problem: Resolved Procedures Performed: none Results and Findings: Lab Pending Results 04/10/19 16:40: WBC 7.5, RBC 4.52, Hgb 13.6, Hct 40.1, MCV 88.7, MCH 30.1, MCHC 33.9, RDW 13.2, Plt Count 210, MPV 8.9, Immature Gran % (Auto) 0.10, Immature Gran # (Auto) 0.01, Neutrophils % 64.7, Lymphocytes % 30.1, Monocytes % 3.5, Eosinophils % 1.2, Basophils % 0.4, Nucleated RBC % 0.0, Neutrophils # 4.8, Lymphocytes # 2.25, Monocytes # 0.3, Eosinophils # 0.1, Absolute Basophils 0.0 04/10/19 16:40: PT 11.4 H, INR (Anticoag Therapy) 1.16 H, PTT ([place]) 26.2 04/10/19 16:40: Sodium 139, Plasma Sodium 139, Potassium 3.1 L, Chloride 101, Carbon Dioxide 27.7, Anion Gap 13.4, BUN 9, Creatinine 0.55, Est GFR (Non-Af Amer) 126, BUN/Creatinine Ratio 16.4, Random Glucose 120 H, Calcium 8.5, Calcium Adj for Albumin 8.7, Total Bilirubin 0.6, AST 12, ALT 11 L, Alkaline Phosphatase 86, Troponin I 0.042, Total Protein 7.0, Albumin 3.3 L 04/10/19 16:40: D-Dimer 0.53 H 04/10/19 19:32: Troponin I 0.051 04/10/19 22:30: Troponin I 0.049 04/11/19 06:40: Sodium 141, Plasma Sodium 141, Potassium 4.2 D, Chloride 108 H, Carbon Dioxide 27.0, Anion Gap 10.2, BUN 12, Creatinine 0.52, Est GFR (Non-Af Amer) 134 H, BUN/Creatinine Ratio 23.1 H, Random Glucose 106, Calcium 8.2 Discharge Location: Home Disposition: Home self-care Condition: Good Discharge Activity: Activity as tolerated Discharge Diet: General/regular food Referrals: Mel Herring FNP [Primary Care Provider] - Two Weeks Prescriptions (Any new or edited meds): Lisinopril [Zestril] 10 mg PO DAILY #30 tablet Complete Home Medications List: Complete Home Medication List: Lisinopril [Zestril] 10 mg PO DAILY #30 tablet 04/11/19 Amb Orders for Discharge: Lipid Profile Time Frame: 2 Weeks, Facility: [facility], Location: Laboratory NUC Treadmill Stress Test Time Frame: 2 Weeks, Facility: [facility], Location: Radiology
[2019-04-11] MEDS: POTASSIUM CHLORIDE 20 MEQ TABLET.SA PO SCH (08:50)
[2019-04-11] MEDS: KETOROLAC TROMETHAMINE 10 MG TABLET PO SCH (08:51)
[2019-04-11] MEDS: LISINOPRIL 10 MG TABLET PO SCH (08:51)
[2019-04-11] MEDS ORDERED: FLU VACC QS2019-20(6MOS UP)/PF 60 MCG/0.5 ML SYRINGE IM ONE (09:00)
[2019-04-11 09:54] VITALS: BP 151/69
== END 2019-04-11 09:58 | disposition home or self-care (01) ==
LOC: MS 16:27 → ER 16:27 → MS 20:35
PROVIDERS: ADMIT Family Medicine; ATTEND Family Medicine
DX: R07.9 Chest pain, unspecified; Z23 Encounter for immunization; I10 Essential (primary) hypertension; E87.6 Hypokalemia
CPT/HCPCS: 36415; 71020; 71046; 71275; 80048; 80053; 84484; 85025; 85379; 85610; 85730; 90686; 93005; 96372; 99285; G0008; G0378; Q9967